=== PATIENT | male | born 1935 | race Hispanic/Latino ===

== ENCOUNTER 2019-03-27 12:52 | Emergency (ER) | payer MEDICARE ==
[2019-03-27 13:15] VITALS: RESP 18
--- NOTE | 2019-03-27 13:39 | ED PDOC ---
Arrival/HPI - General Chief Complaint: Groin Pain Time Seen by Provider: 03/27/19 12:54 Historian: Patient, Family - History of Present Illness Narrative History of Present Illness (Text): 03/27/19 13:40 83 year old male, with past medical history of hypothyroidism, hyperlipidemia, and hypertension, presents to the emergency department with for evaluation of hernia that has been present for the past three months. Patient reports that he was bending down yesterday when he felt a pain in his left side. Son notes that patient had a surgery several years ago on both sides, but did not experience any deficits or pain till three months ago. Patient denies any fevers, nausea, vomiting, diarrhea, or any other complaints at this time. PMD: Dr. La Time/Duration: Other (yesterday ) Symptom Onset: Gradual Symptom Course: Unchanged Activities at Onset: Light Context: Home Past Medical History - Provider Review Nursing Documentation Reviewed: Yes - Cardiac Hx Hypertension: Yes - Endocrine/Metabolic Hx Hypothyroidism: Yes - Psychiatric Hx Substance Use: No Family/Social History - Physician Review Nursing Documentation Reviewed: Yes Family/Social History: No Known Family HX Smoking Status: Never Smoked Hx Alcohol Use: Yes Frequency of alcohol use: Socially Hx Substance Use: No Allergies/Home Meds Allergies/Adverse Reactions: Allergies No Known Allergies Allergy (Verified 03/27/19 13:15) Home Medications: Home Meds Medication Instructions Recorded Confirmed Ergocalciferol (Vitamin D2) 50,000 units PO QWK 03/27/19 03/27/19 [Vitamin D2] Levothyroxine [Synthroid] 125 mcg PO DAILY 03/27/19 03/27/19 Losartan [Cozaar] 50 mg PO DAILY 03/27/19 03/27/19 Simvastatin [Zocor] 20 mg PO QPM 03/27/19 03/27/19 Review of Systems - Physician Review All systems were reviewed & negative as marked: Yes - Review of Systems Constitutional: absent: Fevers Gastrointestinal: absent: Vomiting Physical Exam - Physical Exam Narrative Physical Exam (Text): 03/27/19 13:48 Constitutional: No acute distress. Head: Normocephalic. Atraumatic. Eyes: PERRL. ENT: Moist mucous membranes. Neck: Supple. Cardiovascular: Regular rate. Chest: No tenderness. Respiratory: Clear to auscultation bilaterally. GI: Small edema to left inguinal area, minimal tenderness, no erythema or ecchymosis Back: No CVA tenderness. Musculoskeletal: No tenderness or swelling of extremities. Skin: No rash. Neurologic: Alert, no focal deficit. Vital Signs Reviewed: Yes Vital Signs Temp Pulse Resp BP Pulse Ox 03/27/19 13:13 98.6 F 76 18 146/69 96 Temperature: Afebrile Blood Pressure: Normal Pulse: Regular Respiratory Rate: Normal Appearance: Positive for: Well-Appearing, Non-Toxic, Comfortable Pain Distress: None Mental Status: Positive for: Alert and Oriented X 3 Medical Decision Making ED Course and Treatment: 03/27/19 13:49 Impression: 83 year old male presents to emergency department for evaluation of hernia after experiencing left-sided pain yesterday. Plan: -- CT Abdomen & Pelvis IMPRESSION: Bilateral fat containing inguinal hernias without evidence of incarceration or obstruction. Prominent amount of retained colonic stool. Discharged home, f/u Gen Surg, return to ED for worsening pain, vomiting, constipation, inability to pass flatus, ecchymosis, erythema, or any other problem. - Scribe Statement The provider has reviewed the documentation as recorded by the Scribe Rose Taylor All medical record entries made by the Scribe were at my direction and personally dictated by me. I have reviewed the chart and agree that the record accurately reflects my personal performance of the history, physical exam, medical decision making, and the department course for this patient. I have also personally directed, reviewed, and agree with the discharge instructions and disposition. Disposition/Present on Arrival - Present on Arrival Any Indicators Present on Arrival: No History of DVT/PE: No History of Uncontrolled Diabetes: No Urinary Catheter: No History of Decub. Ulcer: No History Surgical Site Infection Following: None - Disposition Have Diagnosis and Disposition been Completed?: Yes Diagnosis: Inguinal hernia Disposition: HOME/ ROUTINE Disposition Time: 14:37 Patient Plan: Discharge Condition: GOOD Discharge Instructions (ExitCare): Inguinal and Femoral (Groin) Hernias Additional Instructions: FINDINGS: LOWER THORAX: Cardiomegaly. Coronary arterial and valvular calcifications. Bibasilar dependent atelectasis. No focal consolidation or pleural effusion. LIVER: Unremarkable. No gross lesion or ductal dilatation. GALLBLADDER AND BILE DUCTS: Unremarkable. PANCREAS: Unremarkable. No gross lesion or ductal dilatation. SPLEEN: Unremarkable. ADRENALS: Unremarkable. No mass. KIDNEYS AND URETERS: 1.4 cm right interpolar cyst the left lower pole 1.6 cm cyst. No hydronephrosis. No solid mass. VASCULATURE: Unremarkable. No aortic aneurysm. No aortic atherosclerotic calcification or mural plaque present. BOWEL: Prominent matter retained colonic stool. No obstruction. No gross mural thickening. APPENDIX: No findings to suggest acute appendicitis. PERITONEUM: Moderate left fat containing inguinal hernia. Small right fat containing inguinal hernia. No free fluid. No free air. LYMPH NODES: Unremarkable. No enlarged lymph nodes. BLADDER: Unremarkable. REPRODUCTIVE: Unremarkable. BONES: Multilevel spinal degenerative changes. No acute fracture. OTHER FINDINGS: None. IMPRESSION: Bilateral fat containing inguinal hernias without evidence of incarceration or obstruction. Prominent amount of retained colonic stool. Referrals: Radames Underwood MD [Medical Doctor] - Follow up with primary Forms: [employer] (Iranian)
--- NOTE | 2019-03-27 14:35 | CT ---
Date of service: 03/27/2019 PROCEDURE: CT Abdomen and Pelvis without intravenous contrast HISTORY: L sided hernia, r/o incarceration/obstruction COMPARISON: None. TECHNIQUE: Contiguous images were obtained from the domes of the diaphragms to the upper thighs without the administration of intravenous contrast. Oral contrast was not administered. Radiation dose: Total exam DLP = 367.57 mGy-cm. This CT exam was performed using one or more of the following dose reduction techniques: Automated exposure control, adjustment of the mA and/or kV according to patient size, and/or use of iterative reconstruction technique. FINDINGS: LOWER THORAX: Cardiomegaly. Coronary arterial and valvular calcifications. Bibasilar dependent atelectasis. No focal consolidation or pleural effusion. LIVER: Unremarkable. No gross lesion or ductal dilatation. GALLBLADDER AND BILE DUCTS: Unremarkable. PANCREAS: Unremarkable. No gross lesion or ductal dilatation. SPLEEN: Unremarkable. ADRENALS: Unremarkable. No mass. KIDNEYS AND URETERS: 1.4 cm right interpolar cyst the left lower pole 1.6 cm cyst. No hydronephrosis. No solid mass. VASCULATURE: Unremarkable. No aortic aneurysm. No aortic atherosclerotic calcification or mural plaque present. BOWEL: Prominent matter retained colonic stool. No obstruction. No gross mural thickening. APPENDIX: No findings to suggest acute appendicitis. PERITONEUM: Moderate left fat containing inguinal hernia. Small right fat containing inguinal hernia. No free fluid. No free air. LYMPH NODES: Unremarkable. No enlarged lymph nodes. BLADDER: Unremarkable. REPRODUCTIVE: Unremarkable. BONES: Multilevel spinal degenerative changes. No acute fracture. OTHER FINDINGS: None. IMPRESSION: Bilateral fat containing inguinal hernias without evidence of incarceration or obstruction. Prominent amount of retained colonic stool.
[2019-03-27 15:01] VITALS: BP 137/66; PULSE 80; TEMP 98.4; O2SAT 97
== END 2019-03-27 15:08 | disposition home or self-care (01) ==
LOC: ED 12:52 → MERGE 12:52 → ED 15:08
DX: K40.20 Bilateral inguinal hernia, without obstruction or gangrene, not specified as recurrent (principal); I10 Essential (primary) hypertension